=== PATIENT | female | born 1980 | race American Indian/Alaskan Native ===

== ENCOUNTER 2022-02-21 16:44 | Emergency (ER) | payer MEDICAID ==
[2022-02-21 16:47] VITALS: BP 134/82
[2022-02-21] MEDS ORDERED: ASPIRIN 325 MG TAB PO ONE (17:58)
--- NOTE | 2022-02-22 10:20 | Electrocardiograph Report ---
[facility] Test Date: 2022-02-21 Test Time: 16:54:41 Pat Name: ARIELA BLACKMON Department: Room: Gender: F Gate Manager: JACKIE : 1980 Requested By: HELEN ADKINS Order Number: [id number] Reading MD: Everett Stanford Measurements Intervals [place] Rate: 90 P: 57 MN: 176 QRS: -10 QRSD: 98 T: 60 QT: 365 QTc: 447 Interpretive Statements Sinus arrhythmia No previous ECG available for comparison Electronically Signed On 02-22-2022 10:20:35 EDT by Everett Stanford
== END 2022-02-21 18:48 | disposition left against medical advice (07) ==
LOC: ED 16:44
DX: R07.9 Chest pain, unspecified (principal); Z53.21 Procedure and treatment not carried out due to patient leaving prior to being seen by health care provider
CPT/HCPCS: 93005